=== PATIENT | female | born 1985 | race Caucasian/White ===

== ENCOUNTER 2018-08-13 08:33 | Emergency (ER) | payer OTHER ==
[~2018-08-13] VITALS: Ht 172.7 cm; Wt 98.0 kg
[~2018-08-13 08:33] MED LIST: PRENAT PO
[2018-08-13 08:36] VITALS: BP 122/84; PULSE 98; RESP 20; Ht 172.7 cm; Wt 98.0 kg
[2018-08-13] MEDS ORDERED: AZIT250T13 PO (09:02)
[2018-08-13] MEDS ORDERED: ALBU8.5H8 INH (09:02)
--- NOTE | 2018-08-13 09:04 | ERD ---
ER Documentation Chief Complaint Chief Complaint COUGH, HEADACHE & MYALGIA X1 WEEK HPI 33-year-old female presents to the emergency department complaining of URI symptoms x1 week. She states she is had a nonproductive cough. She states that she has a cough productive of sputum. She has a low-grade fever. She reports no difficulty breathing. ROS All systems reviewed and are negative except as per history of present illness. Medications Home Meds Active Scripts Azithromycin* (Azithromycin*) 250 Mg Tablet, 250 MG PO DAILY for z pack, #6 TAB Prov:RAFI ABDALLA 08/13/18 Albuterol Sulfate* (Proair HFA*) 8.5 Gm Hfa.aer.ad, 2 PUFF INH Q4H PRN for WHEEZING AND SOB, #1 INHALER Prov:RAFI ABDALLA 08/13/18 Reported Medications Multivit/Min/Fol Ac/Iron/Pren* ( S*) 1 Tab Tab, 1 TAB PO DAILY, TAB 12/21/14 Allergies Allergies: Coded Allergies: No Known Allergy (Unverified , 12/21/14) PMhx/Soc Smoking Status: Current some day smoker FmHx Noncontributory for chief complaint Physical Exam Vitals Vital Signs Date Temp Pulse Resp B/P (MAP) Pulse Ox O2 O2 Flow FiO2 Time Delivery Rate 08/13/18 97.6 98 20 122/84 94 08:36 (97) Physical Exam GENERAL: The patient is well developed and appropriate for usual state of health in no apparent distress HEENT: Pupils equal, round, and reactive to light. EOMI. There is no scleral icterus. NECK: C-spine is soft and supple, there is no meningismus. There is no cervical lymphadenopathy. LUNGS: Occasional wheeze bilaterally. No tachypnea or retractions. HEART: Regular rate and rhythm, no murmurs, clicks, rubs or gallops. Procedures/MDM Patient was taken to a room, seen and examined Medical decision makin-year-old female presents with what appears to be a bronchitis. She has a significant smoking history and I am concerned may have some underlying COPD. Because of this possibility of chronic lung disease, she will be placed on antibiotics for her bronchitis. She has however otherwise clinically nontoxic with no signs of hypoxemia and seems appropriate for discharge. Departure Diagnosis: Primary Impression: Cough Condition: Stable Patient Instructions: Getting Support for Quitting Smoking, Bronchitis, Antiobiotic Treatment (Adult) Additional Instructions: See your doctor if not improved in the next 2-3 days RAFI ABDALLA Aug 13, 2018 09:04
== END 2018-08-13 09:34 | disposition home or self-care (01) ==
LOC: FTE 08:33
DX: R05 Cough (principal)
CPT/HCPCS: 99283